=== PATIENT | male | born 1975 | race Caucasian/White ===

== ENCOUNTER 2020-01-13 10:43 | Outpatient (CLI) | payer OTHER ==
--- NOTE | 2020-01-13 14:06 | RAD ---
LUMBAR SPINE SERIES THREE VIEWS: 01/13/20 HISTORY: Fall with back pain. The vertebral bodies maintain normal height. Bilateral pedicle screws have been placed at the L3, L4 and L5 levels. Markers of disc implants are within compliance of the disc levels. Pedicles are intact . IMPRESSION: Postop changes of the spine. No acute findings. POS: [facility]
== END 2020-01-13 10:44 | disposition home or self-care (01) ==
LOC: MADRAD 10:43
PROVIDERS: ATTEND Orthopaedic Surgery
DX: M54.5 Low back pain (principal); Z98.890 Other specified postprocedural states
CPT/HCPCS: 72100